=== PATIENT | male | born 1995 | race Two or more races ===

== ENCOUNTER 2019-10-27 20:10 | Emergency (ER) | payer SELFPAY ==
[~2019-10-27] VITALS: Ht 190.5 cm; Wt 90.7 kg
[2019-10-27 20:46] VITALS: BP 147/101
== END 2019-10-28 05:03 | disposition left against medical advice (07) ==
LOC: ER 20:11
DX: M25.511 Pain in right shoulder (principal); M54.2 Cervicalgia; R51 Headache; Z53.21 Procedure and treatment not carried out due to patient leaving prior to being seen by health care provider
CPT/HCPCS: 70450; 71045; 72125; 73000; 73030

== ENCOUNTER 2019-11-30 09:26 | Emergency (ER) | payer MEDICAID, OTHER ==
[~2019-11-30] VITALS: Ht 190.5 cm; Wt 90.7 kg
[2019-11-30] MEDS ORDERED: MORPHINE SULF INJ 2 MG/ML SYRINGE 1ML IV ONE (11:15)
[2019-11-30] MEDS ORDERED: ONDANSETRON HCL 4 MG/2 ML VIAL IV ONE (11:15)
[2019-11-30 11:35] LABS: Basophils # (auto) 0 10 ^3/uL (0-0.2); Basophils % (auto) 0.4 % (0.0-2.0); Eosinophils # (auto) 0.2 10 ^3/uL (0-0.8); Eosinophils % (auto) 2.6 % (0.0-7.0); Hematocrit 38.7 % (41.0-53.0); Lymphocytes # (auto) 1.1 10 ^3/uL (0.4-5.4); Lymphocytes % (auto) 12.1 % (10.0-50.0); Mean Corpuscular Hemoglobin 31.1 pg (28.0-32.0); Mean Corpuscular Hgb Conc. 33.6 g/dL (32.0-36.0); Mean Corpuscular Volume 92.6 fL (80.0-100.0); Monocytes # (auto) 0.5 10 ^3/uL (0-1.3); Monocytes % (auto) 5.9 % (0.0-12.0); Neutrophils # (auto) 7.4 10 ^3/uL (1.6-8.6); Platelet Count (auto) 268 10^3/uL (140-450); Red Blood Cells 4.17 10^6/uL (4.5-5.90); Red Cell Distribution Width 13.3 % (11.8-14.3); White Blood Cell 9.3 10^3/uL (4.4-10.8)
[2019-11-30 11:44] LABS: Calcium 9.1 mg/dL (8.5-10.1); Potassium 3.9 mmol/L (3.5-5.1)
[2019-11-30 11:47] LABS: BUN/Creatinine Ratio 13.8
[2019-11-30 11:50] LABS: INR 0.98 (0.9-1.15); Partial Thromboplastin Time 26.5 sec (23.64-32.05)
[2019-11-30 11:52] VITALS: BP 145/87
== END 2019-11-30 12:03 | disposition short-term general hospital (02) ==
LOC: ER 09:26
DX: S72.031A Displaced midcervical fracture of right femur, initial encounter for closed fracture (principal); S80.811A Abrasion, right lower leg, initial encounter; V19.9XXA Pedal cyclist (driver) (passenger) injured in unspecified traffic accident, initial encounter; Y93.89 Activity, other specified; Y92.89 Other specified places as the place of occurrence of the external cause; Y99.8 Other external cause status
CPT/HCPCS: 29505; 36415; 73552; 80048; 85025; 85610; 85730; 96374; 96375; 99285; J2270; J2405